=== PATIENT | female | born 1965 | race Hispanic/Latino ===

== ENCOUNTER 2017-06-23 15:22 | Emergency (ER) | payer SELFPAY | END 2017-06-23 15:55 | disposition home or self-care (01) | LOC: MADERS 15:22 | DX: S30.0XXA Contusion of lower back and pelvis, initial encounter (principal); S50.312A Abrasion of left elbow, initial encounter; V89.2XXA Person injured in unspecified motor-vehicle accident, traffic, initial encounter | CPT/HCPCS: 99284; G0390 ==